=== PATIENT | male | born 1985 | race Caucasian/White ===

== ENCOUNTER 2020-01-12 21:45 | Emergency (ER) | payer SELFPAY ==
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
[2020-01-12] MEDS ORDERED: Diphtheria,Pertussis(Acell),Tetanus Vaccine 0.5 ML Syringe IM ONE (22:30)
--- NOTE | 2020-01-12 22:44 | CT ---
INDICATION: Trauma TECHNIQUE: CT head without contrast. COMPARISON: None available FINDINGS: There is mild artifact near the skullbase. The ventricles and sulci are within normal limits for the patient`s age. There is no mass effect or midline shift. There is no loss of izaguirre-white differentiation. There is no evidence of gross acute intracranial hemorrhage. Mild focal asymmetrical prominence of the right cavernous region on image 23 of series 201 may be related to focal carotid tortuosity and ectasia. There is a displaced fracture of the posterolateral wall of the left maxillary sinus and bilateral nasal bone lucencies which are age indeterminate. There is right parietal scalp swelling and left facial and periorbital soft tissue swelling. There is small blood in the left maxillary sinus as well as the mild maxillary sinus mucosal thickening and a small left sphenoid sinus mucosal retention cyst or polyp. The mastoid air cells are clear. There is an ovoid low attenuation area with a small focus of gas anterior to the left globe. IMPRESSION: No evidence of gross acute intracranial hemorrhage, mass effect or loss of izaguirre-white differentiation. Please refer to the report of the facial bone CT for description of facial injuries. Please note that all CT scans at this facility use dose modulation, iterative reconstruction, and/or weight-based dosing when appropriate to reduce radiation dose to as low as reasonably achievable. Dictated by Moy Perez MD @ Jan 12 2020 10:31PM Signed by Dr. Moy Perez @ Jan 12 2020 10:42PM
--- NOTE | 2020-01-12 22:51 | CT ---
INDICATION: Trauma TECHNIQUE: CT cervical spine without contrast. COMPARISON: None available FINDINGS: The cervical spine alignment is maintained. The craniocervical and atlantoaxial alignments are near anatomical. There is no evidence of an acute cervical spine fracture. There is no significant precervical soft tissue swelling. There is a small disc osteophyte complex at C5-6 and apparent small disc protrusions at C3-4 and C6-7. Luminal fluid is seen in the proximal esophagus. IMPRESSION: No evidence of an acute cervical spine fracture. Please note that all CT scans at this facility use dose modulation, iterative reconstruction, and/or weight-based dosing when appropriate to reduce radiation dose to as low as reasonably achievable. Dictated by Moy Perez MD @ Jan 12 2020 10:30PM Signed by Dr. Moy Perez @ Jan 12 2020 10:49PM
[2020-01-12 22:56] LABS: BLOOD UREA NITROGEN,BUN 11 mg/dL (7.0-18.0); CARBON DIOXIDE,CO2 21.6 mmol/L (21.0-32.0); CHLORIDE,CL 99 mmol/L (98-107); GLUCOSE RANDOM 117 mg/dL (74-106); POTASSIUM,K 2.9 mmol/L (3.5-5.1); SODIUM,NA 135 mmol/L (136-148)
--- NOTE | 2020-01-12 22:59 | CT ---
INDICATION: Trauma TECHNIQUE: CT maxillofacial without contrast. COMPARISON: None available FINDINGS: There is a displaced fracture of the posterolateral wall of the left maxillary sinus. There is apparent mild focal diastasis of the left orbital lateral wall suture. Bilateral nasal bone fracture lucencies are seen, although of unclear chronicity. There is left periorbital and facial soft tissue swelling and a small hematoma. There is a crescentic low-attenuation area containing a small focus of gas anterior to the left globe which could be related to the left orbital conjunctiva or may be underlying the eyelids. There is small blood in the left maxillary sinus. Foci of mild paranasal sinus mucosal thickening are noted. IMPRESSION: A displaced fracture of the left maxillary sinus posterolateral wall. Apparent focal diastasis of the left orbital lateral wall suture which may be traumatic. Bilateral nasal bone fracture lucencies, of unclear chronicity. Correlate clinically. A crescentic low-attenuation area containing a focus of gas anterior to the left globe. Correlate with ophthalmological evaluation. Please note that all CT scans at this facility use dose modulation, iterative reconstruction, and/or weight-based dosing when appropriate to reduce radiation dose to as low as reasonably achievable. Dictated by Moy Perez MD @ Jan 12 2020 10:31PM Signed by Dr. Moy Perez @ Jan 12 2020 10:57PM
== END 2020-01-13 01:30 | disposition home or self-care (01) ==
LOC: MW.ED 21:45
DX: S02.40DA Maxillary fracture, left side, initial encounter for closed fracture (principal); S02.2XXA Fracture of nasal bones, initial encounter for closed fracture; S02.842A Fracture of lateral orbital wall, left side, initial encounter for closed fracture; F10.129 Alcohol abuse with intoxication, unspecified; Y90.8 Blood alcohol level of 240 mg/100 ml or more; Y04.0XXA Assault by unarmed brawl or fight, initial encounter
CPT/HCPCS: 36415; 70450; 70486; 72125; 80053; 80307; 85025; 93005; 99291; G0390; 93010

== ENCOUNTER 2023-11-28 16:02 | Emergency (ER) | payer SELFPAY ==
[2023-11-28] MEDS ORDERED: Sodium Chloride 0.9% 10 ML Syringe FLUSH PRN (16:04)
[2023-11-28] MEDS ORDERED: Sodium Chloride 0.9% 2.5 ML Syringe FLUSH PRN (16:04)
[2023-11-28 16:17] LABS: HEMATOCRIT 46.2 % (42.0-52.0); HEMOGLOBIN 17.2 g/dL (14.0-18.0); MEAN CORPUSCULAR HGB CONC 37.2 g/dL (32.0-36.0); MEAN CORPUSCULAR VOLUME 88.7 fL (83.0-99.0); MEAN PLATELET VOLUME 9.1 fL (9.4-12.4); PLATELET COUNT,PLT 393 K/uL (150-400); RED BLOOD CELL COUNT 5.21 M/uL (4.52-5.90); WHITE BLOOD CELL COUNT,WBC 9.78 K/uL (3.9-11.3)
[2023-11-28 16:26] LABS: BAND ABSOLUTE MAN 0.29; BAND PERCENT MAN 3 %; BASOPHILS PERCENT MAN 1 % (0-1); EOSINOPHILS PERCENT MAN 1 % (0-6); INR 1.02 (0.86-1.11); LYMPHOCYTES ABSOLUTE MAN 5.57 K/uL (1.00-4.80); LYMPHOCYTES PERCENT MAN 57 % (24-44); MONOCYTES ABSOLUTE MAN 0.98 K/uL (0.00-0.80); MONOCYTES PERCENT MAN 10 % (0-8); PTT,PARTIAL THROMBOPLSTIN TIME 27.6 SEC (23.9-30.7); SEG NEUTROPHILS ABSOLUTE MAN 2.74 K/uL (1.80-7.70); SEG NEUTROPHILS PERCENT MAN 28 % (41-71)
[2023-11-28 16:44] LABS: A/G RATIO 1.1 (0.9-1.6); ALBUMIN 4.3 g/dL (3.4-5.0); BILIRUBIN TOTAL 0.4 mg/dL (0.2-1.0); CALCIUM 8.6 mg/dL (8.5-10.1); CARBON DIOXIDE,CO2 22.5 mmol/L (21.0-32.0); EST CRCL DRUG DOSING (CG) 109.93 mL/min; POTASSIUM,K 3.5 mmol/L (3.5-5.1); PROTEIN TOTAL,TP 8.3 g/dL (6.4-8.2)
[2023-11-28] MEDS: Diphtheria,Pertussis(Acell),Tetanus Vaccine 0.5 ML Syringe IM ONE (16:56)
== END 2023-11-28 17:50 | disposition home or self-care (01) ==
LOC: MW.ED 16:02
DX: S00.01XA Abrasion of scalp, initial encounter (principal); S09.90XA Unspecified injury of head, initial encounter; F10.120 Alcohol abuse with intoxication, uncomplicated; Z23 Encounter for immunization; Z75.8 Other problems related to medical facilities and other health care; Y04.8XXA Assault by other bodily force, initial encounter
CPT/HCPCS: 36415; 70450; 70450-26; 72125; 72125-26; 80053; 80307; 85025; 85610; 85730; 90471; 90715; 99283; 99285-25